=== PATIENT | male | born 1950 ===

== ENCOUNTER 2021-04-20 06:05 | Observation (INO) ==
[~2021-04-20 06:05] MED LIST: Buffered Lidocaine 1% SYRIN 1 ml INTRADERM ONE; Lactated Ringers 1000 ml BAG 1,000 ML IV SCH
[2021-04-20] MEDS ORDERED: cefTRIAXone 2 GM ADDV.VIAL ONE (06:47)
[2021-04-20] MEDS ORDERED: Propofol 10 MG/ML 20 ML BTL ONE (07:28)
[2021-04-20] MEDS ORDERED: Lidocaine 2% PF 5 ML VIAL ONE (07:28)
[2021-04-20] MEDS ORDERED: fentaNYL 100 mcg/2 ml 50 MCG/ML VIAL ONE (07:28)
[2021-04-20] MEDS ORDERED: Midazolam 2 mg/2 ml VIAL 1 mg/ml 2 ml VIAL (2 mg) ONE (07:28)
[2021-04-20] MEDS ORDERED: Sterile Water for Inj 10 ML ONE (07:59)
[2021-04-20] MEDS ORDERED: EPHEDrine (Pressors) 50 MG/ML VIAL ONE (07:59)
[2021-04-20] MEDS ORDERED: Ondansetron 4 mg VIAL 2 MG/ML 2 ml VIAL ONE (08:04)
[2021-04-20] MEDS ORDERED: Dexamethasone IV 4 MG/ML VIAL 1 ml VIAL ONE (08:04)
[2021-04-20] MEDS ORDERED: HYDROmorphone 1 MG/1 ML SYRINGE ONE (08:42)
[2021-04-20] MEDS ORDERED: Naloxone 0.4 mg VIAL 0.4 mg/ml 1 ml VIAL IV PRN (09:17)
[2021-04-20] MEDS ORDERED: Prochlorperazine 5 mg/ml 2 ml VIAL (10 mg) IV PRN (09:17)
[2021-04-20] MEDS ORDERED: Lidocaine 2% JELLY 6 ML TOPICAL ONE (09:30)
[2021-04-20] MEDS ORDERED: oxyCODONE/Acetamin 5/325 mg TAB PO PRN (11:04)
[2021-04-20] MEDS ORDERED: Lidocaine 2% JELLY 6 ML TOPICAL PRN (11:06)
[2021-04-20] MEDS: NS 0.9% 1,000 ML IV SCH ×2 (12:52→20:30)
[2021-04-21] MEDS: NS 0.9% 1,000 ML IV SCH (02:47)
[2021-04-21] MEDS ORDERED: Flu vaccine *QUAD* 2021-22* 0.5 ML SYRINGE IM ONE (09:00)
[2021-04-21] MEDS ORDERED: Potassium Chlor 10 meq TAB PO SCH (09:00)
[2021-04-21 09:28] VITALS: BP 116/66
== END 2021-04-21 10:19 | disposition home or self-care (01) ==
LOC: OR 06:05 → SSU 06:05
PROVIDERS: ADMIT Urology; ATTEND Urology